=== PATIENT | female | born 1990 | race Caucasian/White ===

== ENCOUNTER 2021-04-19 15:26 | Emergency (ER) | payer OTHER ==
[2021-04-19 17:10] VITALS: BP 122/79; PULSE 83; RESP 18; TEMP 98.1
--- NOTE | 2021-04-19 18:02 | XR ---
EXAMINATION TYPE: XR shoulder complete RT DATE OF EXAM: 04/19/2021 5:22 PM INDICATION: Patient age:Female; 31 years old; Reason for study: right shoulder pain; PHH. COMPARISON: None TECHNIQUE: The right shoulder was examined in AP, internally rotated and axillary projections. FINDINGS: No evidence of acute osseous pathology, joint dislocation, or soft tissue swelling. The remaining por tions of the visualized chest are unremarkable. IMPRESSION: No acute osseous pathology.
[2021-04-19] MEDS ORDERED: KETOROLAC 15 MG/ML 1 ML VIAL IM STA (18:06)
[2021-04-19] MEDS ORDERED: ACET/COD 300 MG/30 MG STARTER PACK 6 TAB BTL PO STA (18:38)
--- NOTE | 2021-04-19 18:39 | ED ---
General Adult HPI - General Chief complaint: Extremity Injury, Upper Stated complaint: R shoulder pain Time Seen by Provider: 04/19/21 17:46 Source: patient, RN notes reviewed Mode of arrival: ambulatory Limitations: no limitations - History of Present Illness Initial comments: 31-year-old female with a past medical history of diabetes mellitus presents to the emergency room for a chief complaint of right shoulder pain. Patient has had right shoulder pain for the past 4 days. States she woke up like this. States she thinks she may have popped out of place and then popped back in. Patient states it is painful to lift. Patient denies any other injuries. Denies fevers. Rates the pain is also in the upper trapezius muscle.Patient has no other complaints at this time including shortness of breath, chest pain, abdominal pain, nausea or vomiting, headache, or visual changes. - Related Data Home Medications Medication Instructions Recorded Confirmed Ibuprofen [Motrin] 800 mg PO TID PRN 04/26/16 04/26/16 Previous Rx's Medication Instructions Recorded Azithromycin [Zithromax Z-pack (6 250 mg PO DIRECTED #6 tab 04/26/16 tabs)] methylPREDNISolone Dose Pack 4 mg PO DIRECTED #21 package 04/26/16 [Medrol Dose Pack] Allergies Allergy/AdvReac Type Severity Reaction Status Date / Time No Known Allergies Allergy Verified 04/19/21 17:10 Review of Systems ROS Statement: Those systems with pertinent positive or pertinent negative responses have been documented in the HPI. ROS Other: All systems not noted in ROS Statement are negative. Past Medical History Past Medical History: Diabetes Mellitus History of Any Multi-Drug Resistant Organisms: None Reported Past Surgical History: Cholecystectomy Past Psychological History: No Psychological Hx Reported Smoking Status: Current every day smoker Past Alcohol Use History: Occasional Past Drug Use History: Marijuana General Exam Limitations: no limitations General appearance: alert, in no apparent distress Head exam: Present: atraumatic Eye exam: Present: normal appearance, PERRL, EOMI. Absent: conjunctival injection ENT exam: Present: normal exam, mucous membranes moist Neck exam: Present: normal inspection, full ROM. Absent: tenderness Respiratory exam: Present: normal lung sounds bilaterally. Absent: respiratory distress, wheezes Cardiovascular Exam: Present: regular rate, normal rhythm, normal heart sounds GI/Abdominal exam: Present: soft, normal bowel sounds. Absent: distended, tenderness Extremities exam: Present: tenderness (Mild tenderness to superior trapezius muscle. No tenderness to the shoulder.), normal capillary refill (Capillary refill less than 2 seconds, radial pulse 2+ right upper extremity.), other (Sensation intact right upper extremity. 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 Absent: full ROM (Patient has about 90 flexion, 90 abduction of the right shoulder which is then limited by pain.) Course Vital Signs 04/19/21 17:06 Temperature 98.1 F Pulse Rate 83 Respiratory 18 Rate Blood Pressure 122/79 O2 Sat by Pulse 100 Oximetry Medical Decision Making - Medical Decision Making Vitals are stable. HPI and physical exam as documented. Right shoulder showed no acute osseous pathology. Patient was given Toradol shot which did help. At this time we will discharge patient home with pain medication and orthopedic follow-up. If she could likely benefit from MRI. She will return here for any worsening symptoms. Disposition Clinical Impression: Shoulder pain, right Disposition: HOME SELF-CARE Condition: Good Instructions (If sedation given, give patient instructions): Shoulder Pain (ED) Additional Instructions: Please take Motrin as needed for pain. Take Tylenol 3 for breakthrough pain but do not drive or operative machinery while taking this. Follow up with your doctor. Return to the emergency room for any worsening symptoms. Is patient prescribed a controlled substance at d/c from ED?: No Referrals: Nabeel Rojas MD [STAFF PHYSICIAN] - 1-2 days Time of Disposition: 18:37
== END 2021-04-19 18:45 | disposition home or self-care (01) ==
LOC: EC 15:26
DX: M25.511 Pain in right shoulder (principal); F17.200 Nicotine dependence, unspecified, uncomplicated; E11.9 Type 2 diabetes mellitus without complications
CPT/HCPCS: 73030; 99283; 96372; J1885